=== PATIENT | female | born 1945 | race Caucasian/White ===

== ENCOUNTER → 2021-03-02 | Outpatient (CLI) | payer MEDICARE | LOC: KOH-I 14:43 | DX: K59.00 Constipation, unspecified (principal) | CPT/HCPCS: 74019 ==

== ENCOUNTER 2021-03-07 09:42 | Emergency (ER) | payer MEDICARE | END 2021-03-07 12:46 | disposition home or self-care (01) | LOC: ER1 09:42 | DX: K59.00 Constipation, unspecified (principal); J44.9 Chronic obstructive pulmonary disease, unspecified; I10 Essential (primary) hypertension; Z90.49 Acquired absence of other specified parts of digestive tract; Z88.6 Allergy status to analgesic agent; F17.200 Nicotine dependence, unspecified, uncomplicated | CPT/HCPCS: 74018; 99283 ==

== ENCOUNTER → 2021-03-27 | Outpatient (CLI) | payer MEDICARE | LOC: KOH-I 14:53 | DX: K59.00 Constipation, unspecified (principal) | CPT/HCPCS: 74150 ==

== ENCOUNTER → 2021-07-31 | Day surgery (SDC) | payer MEDICARE ==
[~2021-07-31] MED LIST: ADVAIR 250-501 EACH INH; FLONASE ALLER15.8 ML; GABAPENTIN300 MG PO; HYDROCHLOROTHIA25 MG PO; HYDROCODON-ACE1 EAC2 PO; LINZESS290 MCG PO; LIPITOR TAB 2020 MG PO; LISINOPRIL40 MG PO; TIZANIDINE HCL4 MG PO; VENTOLIN HFA INH; VITAMIN B-12500 MCG PO; VITAMIN D PO; Vitamin D PO
== END | disposition home or self-care (01) ==
LOC: OR 06:08
DX: D12.3 Benign neoplasm of transverse colon (principal); D12.4 Benign neoplasm of descending colon; K57.30 Diverticulosis of large intestine without perforation or abscess without bleeding; K59.03 Drug induced constipation; K64.1 Second degree hemorrhoids; I10 Essential (primary) hypertension; J44.9 Chronic obstructive pulmonary disease, unspecified; M19.90 Unspecified osteoarthritis, unspecified site; M48.00 Spinal stenosis, site unspecified; F17.200 Nicotine dependence, unspecified, uncomplicated; E66.3 Overweight; Z68.25 Body mass index [BMI] 25.0-25.9, adult; Z90.49 Acquired absence of other specified parts of digestive tract; Z90.710 Acquired absence of both cervix and uterus; Z79.899 Other long term (current) drug therapy
CPT/HCPCS: J2704; J7120

== ENCOUNTER → 2022-01-24 | Outpatient (CLI) | payer MEDICARE | LOC: EXRD 08:50 | DX: R10.9 Unspecified abdominal pain (principal); Z90.49 Acquired absence of other specified parts of digestive tract; K83.8 Other specified diseases of biliary tract | CPT/HCPCS: 76700 ==

== ENCOUNTER → 2022-03-25 | Outpatient (CLI) | payer MEDICARE | LOC: KOH-I 09:43 | DX: F17.210 Nicotine dependence, cigarettes, uncomplicated (principal); R91.8 Other nonspecific abnormal finding of lung field | CPT/HCPCS: 71271 ==

== ENCOUNTER → 2022-03-26 | Outpatient (CLI) | payer MEDICARE | LOC: MRI 07:45 | DX: K83.8 Other specified diseases of biliary tract (principal); Z90.49 Acquired absence of other specified parts of digestive tract | CPT/HCPCS: 74181; 80076; 82150; 83690 ==